=== PATIENT | male | born 1960 | race Two or more races ===

== ENCOUNTER 2023-07-14 12:29 | Emergency (ER) | payer OTHER, SELFPAY ==
[~2023-07-14] VITALS: Ht 185.4 cm; Wt 98.5 kg
[2023-07-14] MEDS ORDERED: OXYC1TAB23 (12:43)
[2023-07-14] MEDS ORDERED: OMEP-173 (12:43)
[2023-07-14] MEDS ORDERED: BUPR1TAB52 (12:43)
[2023-07-14] MEDS ORDERED: METF-838 (12:43)
[2023-07-14] MEDS ORDERED: ARIP1TAB44 (12:43)
[2023-07-14] MEDS ORDERED: JARD1TAB3 (12:43)
[2023-07-14] MEDS ORDERED: MIRA3350 (12:43)
[2023-07-14] MEDS ORDERED: BENZ1TAB5 (12:43)
[2023-07-14] MEDS ORDERED: GLIP10TA6 (12:43)
[2023-07-14] MEDS ORDERED: BISA5TAB73 (12:43)
[2023-07-14 13:27] LABS: BASO # 0.1 10^3/uL (0.0-0.2); BASO % 0.7 % (0.0-1.0); EOS # 0.1 10^3/uL (0.0-0.5); EOS % 1.7 % (0.0-3.0); HEMATOCRIT 38.8 % (42.0-52.0); HEMOGLOBIN 13.4 g/dl (13.5-17.5); LYMPH # 2.1 10^3/uL (1.5-5.0); LYMPH % 27.9 % (24.0-44.0); MEAN CORPUSCULAR HEMOGLOBIN 31.4 pg (27.0-33.0); MEAN CORPUSCULAR HGB CONC 34.5 g/dl (32.0-36.5); MEAN CORPUSCULAR VOLUME 90.9 fl (80.0-96.0); MONO # 0.4 10^3/uL (0.0-0.8); MONO % 5.5 % (2.0-8.0); NEUTROPHILS # 4.9 10^3/uL (1.5-8.5); NEUTROPHILS % 63.8 % (36.0-66.0); PLATELET COUNT, AUTOMATED 287 10^3/uL (150-450); RED BLOOD COUNT 4.27 10^6/uL (4.30-6.10); WHITE BLOOD COUNT 7.7 10^3/uL (4.0-10.0)
[2023-07-14 13:47] LABS: INR 1.04; PROTHROMBIN TIME 13.4 SECONDS (12.5-14.5)
[2023-07-14 13:48] LABS: PARTIAL THROMBOPLASTIN TIME 23.8 SECONDS (24.8-34.2)
[2023-07-14 13:56] LABS: LIPASE 37 U/L (12-53)
[2023-07-14 13:58] LABS: ALBUMIN 4.2 G/DL (3.2-5.2); ALKALINE PHOSPHATASE 57 U/L (46-116); ALT/SGPT 29 U/L (7.0-40); AST/SGOT 11 U/L (<34); BILIRUBIN,DIRECT 0.1 MG/DL (<0.4); BILIRUBIN,TOTAL 0.4 MG/DL (0.3-1.2); BLOOD UREA NITROGEN 18 MG/DL (9-23); CARBON DIOXIDE LEVEL 26 MMOL/L (20-31); CHLORIDE LEVEL 105 MMOL/L (98-107); CREATININE FOR GFR 1.17 MG/DL (0.70-1.30); GLOMERULAR FILTRATION RATE > 60.0 (>49); GLUCOSE, FASTING 168 MG/DL (74-106); SODIUM LEVEL 140 MMOL/L (136-145); TOTAL PROTEIN 7.3 G/DL (5.7-8.2)
[2023-07-14] MEDS ORDERED: PANTOPRAZOLE 40MG VIAL IV ONE (15:05)
[2023-07-14] MEDS ORDERED: ISOVUE-370 76% 100ML VIAL As Ordered ONE (15:09)
[2023-07-14] MEDS ORDERED: NS 500 ML IV ONE (16:35)
[2023-07-14 18:10] VITALS: BP 130/82; TEMP 96.8; O2SAT 95
== END 2023-07-14 18:13 | disposition home or self-care (01) ==
LOC: M ED 12:29
DX: K92.2 Gastrointestinal hemorrhage, unspecified (principal); M54.50 Low back pain, unspecified; F31.9 Bipolar disorder, unspecified; Z79.4 Long term (current) use of insulin; Z79.83 Long term (current) use of bisphosphonates; Z79.899 Other long term (current) drug therapy
CPT/HCPCS: 74177; 80048; 80076; 83690; 85025; 85610; 85730; 86850; 86900; 86901; 93041; 96361; 96374; 99284; C9113; Q9967